=== PATIENT | female | born 1940 | race Caucasian/White ===

== ENCOUNTER 2017-09-24 12:41 | Emergency (ER) | payer OTHER ==
[~2017-09-24] VITALS: Ht 149.9 cm; Wt 68.2 kg
[~2017-09-24 12:41] MED LIST: ASPI-556 PO; BIOT10TA2 PO; DONE5TAB5 PO; IBUP-2354 PO; LORA10TA7 PO; METO25 PO; MULT1CAP32 PO
[2017-09-24] MEDS ORDERED: BACITRACIN 0.9 GM PACKET OINTMENT TP ONE (13:45)
[2017-09-24 14:12] VITALS: BP 134/71
== END 2017-09-24 14:14 | disposition home or self-care (01) ==
LOC: EMS 12:42
DX: S00.512A Abrasion of oral cavity, initial encounter (principal); K13.70 Unspecified lesions of oral mucosa; I10 Essential (primary) hypertension; E78.00 Pure hypercholesterolemia, unspecified; I25.2 Old myocardial infarction; Z88.8 Allergy status to other drugs, medicaments and biological substances; X58.XXXA Exposure to other specified factors, initial encounter; Y93.89 Activity, other specified; Y92.89 Other specified places as the place of occurrence of the external cause; Y99.8 Other external cause status
CPT/HCPCS: 99282